=== PATIENT | male | born 1950 | race Caucasian/White ===

== ENCOUNTER 2017-03-02 18:24 | Emergency (ER) | payer SELFPAY ==
[~2017-03-02] VITALS: Ht 172.7 cm; Wt 65.0 kg
[2017-03-02 18:27] VITALS: BP 195/95; PULSE 93; RESP 18; TEMP 98.6; O2SAT 94
[2017-03-02] MEDS ORDERED: predniSONE 20 MG TAB PO ONE (19:15)
[2017-03-02] MEDS: RESP: ALBUTEROL 2.5 MG/IPRATROPIUM 0.5 MG NEB (SCH) INH (19:22)
[2017-03-02] MEDS ORDERED: PRED20 PO (19:25)
[2017-03-02] MEDS ORDERED: ALBU6.7H INH (19:25)
--- NOTE | 2017-03-02 19:31 | PD ---
HPI Chief Complaint: Medication Refill Request Time Seen by Provider: 19:07 Travel History International Travel<30 days: No Contact w/Intl Traveler<30days: No Traveled to known affect area: No History of Present Illness HPI 66 year old white male presents to the department with complaints of shortness of breath. He states that he has a history of asthma and left his medicines in [place]. He is here on a job site for the next few days.. Last 24 hours has had increasing shortness of breath. He has no access to his inhaler. He normally takes prednisone when his asthma acts up as well. His had no recent illness. He admits to shortness of breath, wheezing and pleuritic chest wall tenderness. No fever chills, earache, sore throat, nausea, vomiting, diarrhea, abdominal pain or urinary symptoms. PFSH Past Medical History Narrative Medical Asthma Asthma: Yes Autoimmune Disease: No Diminished Hearing: No Respiratory: Yes (ASTHMA) Tetanus Vaccination: Never Vaccinated Influenza Vaccination: No Past Surgical History Surgical History: No Previous Surgery Social History Alcohol Use: Yes (occasion) Tobacco Use: No Substance Use: No Allergies-Medications (Allergen,Severity, Reaction): Coded Allergies: No Known Allergies (Unverified , 03/02/17) Reported Meds & Prescriptions Reported Meds & Active Scripts Active Proventil Hfa 6.7 GM Inh (Albuterol Sulfate) 90 Mcg/Act Aer 2 Puff INH Q4-6H PRN Prednisone 20 Mg Tab 20 Mg PO BID 7 Days Review of Systems General / Constitutional: No: Fever Eyes: No: Visual changes HENT: No: Headaches Cardiovascular: No: Chest Pain or Discomfort Respiratory: Positive: Cough, Shortness of Breath, Wheezing, Pleuritic Pain Gastrointestinal: No: Abdominal Pain Genitourinary: No: Dysuria Musculoskeletal: No: Pain Skin: No Rash Neurologic: No: Weakness Psychiatric: No: Depression Endocrine: No: Polydipsia Hematologic/Lymphatic: No: Easy Bruising Physical Exam Narrative GENERAL: Well-developed, well-nourished in mild respiratory distress. Nontoxic appearing. Audible wheezing. Speaks in 3-4 word sentences. HEAD: Normocephalic, atraumatic. EYES: Pupils equal round and reactive. Extraocular motions intact. No scleral icterus. No injection or drainage. ENT: TMs clear without erythema. The external auditory canals clear. Nose: clear . Posterior pharynx is pink and moist. No tonsillar edema or exudate. Uvula midline. Airway patent. NECK: Trachea midline.Supple, nontender, moves head freely. No central bony tenderness or spasm. CARDIOVASCULAR: Regular rate and rhythm without murmurs, gallops, or rubs. RESPIRATORY: Inspiratory next 3 wheezes. No Rales. No rhonchi. Positive accessory muscle use GASTROINTESTINAL: Abdomen soft, non-tender, nondistended. No hepato-splenomegaly , or palpable masses. No guarding. EXTREMITIES: No clubbing, cyanosis, or edema. No joint tenderness, effusion, or edema noted. BACK: Nontender without deformity or crepitance. No flank tenderness. Data Data Last Documented VS Vital Signs Date Time Temp Pulse Resp B/P (MAP) Pulse Ox O2 Delivery O2 Flow Rate FiO2 03/02/17 19:25 03/02/17 18:27 98.6 93 18 94 Orders Orders Prednisone (Deltasone) (03/02/17 19:15) Albuterol-Ipratropium Neb (Duoneb Neb) (03/02/17 19:15) MDM Medical Decision Making Medical Screen Exam Complete: Yes Emergency Medical Condition: Yes Medical Record Reviewed: Yes Differential Diagnosis MDM: High Differential diagnoses: Pneumonia, bronchitis, URI, asthma, RAD, legionnaire's disease, SARS, ARDS, influenza, bronchiolitis, RSV,PE,CHF Narrative Course This is acute exacerbation of asthma. Patient is given prednisone 60 mg by mouth and 2 respiratory treatments of albuterol and Atrovent The patient is reexamined. He is feeling much better. His wheezing is much improved. He now only only fine expiratory wheezes. He is medically stable for discharge Diagnosis Primary Impression: Acute asthma exacerbation Qualified Codes: J45.21 - Mild intermittent asthma with (acute) exacerbation Patient Instructions: General Instructions Additional Instructions: Rest. Increase fluids. Tylenol and Advil. prednisone, and albuterol. Followup with your DrWilla in one week. Return to the ER for any problems. Med/Other Pt SpecificInfo: Prescription(s) given Scripts Albuterol 6.7 GM Inh (Proventil Hfa 6.7 GM Inh) 90 Mcg/Act Aer 2 PUFF INH Q4-6H Y for SHORTNESS OF BREATH, #1 INHALER 0 Refills Prov: Lexus Dorsey DO 03/02/17 Prednisone (Prednisone) 20 Mg Tab 20 MG PO BID for 7 Days, #14 TAB 0 Refills Prov: Lexus Dorsey DO 03/02/17 Disposition: 01 DISCHARGE HOME Condition: Stable Lucius Suresh Mar 02, 2017 19:31
== END 2017-03-02 20:08 | disposition home or self-care (01) ==
LOC: NEPK 18:24
DX: J45.21 Mild intermittent asthma with (acute) exacerbation (principal)
CPT/HCPCS: 94640; 94664; 99284; J7512